=== PATIENT | male | born 1980 | race Caucasian/White ===

== ENCOUNTER 2017-05-01 18:11 | Emergency (ER) | payer OTHER ==
[2017-05-01 18:24] VITALS: TEMP 98.2; BMI 38.7
--- NOTE | 2017-05-01 19:36 | PDOC ---
History of Present Illness - General History Source: Patient Exam Limitations: No Limitations - History of Present Illness Initial Comments: 05/01/17 20:19 The patient is a 37 year old male, with no significant past medical history, who presents to the emergency department with, approx. one day substernal chest pain described as a pressure like sensation rated 7/10. The patient reports the substernal chest pain is worse with deep inspiration. The patient reports he experienced the same exact substernal chest pain last week that lasted for approx. 2-3 days before resolving on its own. The patient also reports mild shortness of breath beginning last week that occurs while walking up and down stairs. 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 The patient also reports increased stressors at home secondary to his mother who is sick. He denies any recent heavy lifting or increase in lifting. He denies any recent travel or surgery. He denies any recent swelling or calf tenderness. He denies any recent diaphoresis, nausea, vomiting, constipation or diarrhea. He denies any recent double or blurry vision. He denies any recent abdominal pain. He denies any recent fevers, chills, headache or dizziness. Allergies: NKA Past surgical history: None reported. Social History: Nonsmoker. Denies EtOH use and recreational drug use. <Enrico Randall - Last Filed: 05/01/17 21:18> <Jyoti Morgan - Last Filed: 05/01/17 23:52> - General Chief Complaint: Shortness of Breath Stated Complaint: S.O.B Time Seen by Provider: 05/01/17 19:10 Past History <Enrico Randall - Last Filed: 05/01/17 21:18> - Past Medical History COPD: No - Immunization History Immunization Up to Date: No - Suicide/Smoking/Psychosocial Hx Smoking History: Never smoked Have you smoked in the past 12 months: No Hx Alcohol Use: No Drug/Substance Use Hx: No Substance Use Type: None <Jyoti Morgan - Last Filed: 05/01/17 23:52> - Past Medical History Allergies/Adverse Reactions: Allergies Allergy/AdvReac Type Severity Reaction Status Date / Time No Known Allergies Allergy Verified 05/01/17 18:24 Home Medications: Ambulatory Orders NK [No Known Home Medication] 05/01/17 Review of Systems - Review of Systems Comments:: 05/01/17 20:20 GENERAL/CONSTITUTIONAL: No fever or chills. No weakness. HEAD, EYES, EARS, NOSE AND THROAT: No change in vision. No ear pain or discharge. No sore throat. CARDIOVASCULAR: +Chest pain. +Shortness of breath. RESPIRATORY: No cough, wheezing, or hemoptysis. GASTROINTESTINAL: No nausea, vomiting, diarrhea or constipation. GENITOURINARY: No dysuria, frequency, or change in urination. MUSCULOSKELETAL: No joint or muscle swelling or pain. No neck or back pain. SKIN: No rash NEUROLOGIC: No headache, vertigo, loss of consciousness, or change in strength/ sensation. ENDOCRINE: No increased thirst. No abnormal weight change. HEMATOLOGIC/LYMPHATIC: No anemia, easy bleeding, or history of blood clots. ALLERGIC/IMMUNOLOGIC: No hives or skin allergy. <Enrico Randall - Last Filed: 05/01/17 21:18> *Physical Exam - Vital Signs Last Vital Signs Temp Pulse Resp BP Pulse Ox 98.2 F 62 18 118/67 99 05/01/17 18:21 18 18:21 18 18:21 05/01/17 18:21 05/01/17 18:21 - Physical Exam Comments: 05/01/17 21:18 GENERAL: +Obese. Awake, alert, and fully oriented, in no acute distress HEAD: No signs of trauma EYES: PERRLA, EOMI, sclera anicteric, conjunctiva clear ENT: Auricles normal inspection, hearing grossly normal, nares patent, oropharynx clear without exudates. Moist mucosa NECK: Normal ROM, supple, no lymphadenopathy, JVD, or masses LUNGS: Breath sounds equal, clear to auscultation bilaterally. No wheezes, and no crackles HEART: Regular rate and rhythm, normal S1 and S2, no murmurs, rubs or gallops ABDOMEN: Soft, nontender, normoactive bowel sounds. No guarding, no rebound. No masses EXTREMITIES: Normal range of motion, no edema. No clubbing or cyanosis. No cords, erythema, or tenderness NEUROLOGICAL: Cranial nerves II through XII grossly intact. Normal speech, normal gait SKIN: Warm, Dry, normal turgor, no rashes or lesions noted. <Enrico Randall Last Filed: 05/01/17 21:18> - Vital Signs Last Vital Signs Temp Pulse Resp BP Pulse Ox 98.2 F 62 18 118/67 99 05/01/17 18:21 05/01/17 18:21 05/01/17 18:21 05/01/17 18:21 05/01/17 18:21 <Jyoti Morgan - Last Filed: 05/01/17 23:52> ED Treatment Course - LABORATORY CBC & Chemistry Diagram: 05/01/17 20:18 05/01/17 20:18 <Enrico Randall - Last Filed: 05/01/17 21:18> - LABORATORY CBC & Chemistry Diagram: 05/01/17 20:18 05/01/17 20:18 - RADIOLOGY Radiology Studies Ordered: Category Date Time Status CHEST PA & LAT [RAD] Stat Radiology 05/01/17 19:35 Ordered <Jyoti Morgan - Last Filed: 05/01/17 23:52> Medical Decision Making - Medical Decision Making 05/01/17 23:50 Pt comes with SOB and atypical chest pain. 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 Pt also states that he is under a lot of stress taking care of his sick mom at home. Pt has no other complaints. He appears well and his exam is normal. His EKG is NSR. Pt has an elevated CPK, however CK MB percent is normal. Pt was hydrated with saline. He will follow as an outpatient. Stable for discharge. <Jyoti Morgan - Last Filed: 05/01/17 23:52> *DC/Admit/Observation/Transfer - Attestations Scribe Attestion: 05/01/17 20:21 Documentation prepared by Enrico Randall, acting as medical biller for Jyoti Morgan MD. <Enrico Randall - Last Filed: 05/01/17 21:18> - Discharge Dispostion Admit: No <Jyoti Morgan - Last Filed: 05/01/17 23:52> Diagnosis at time of Disposition: Dyspnea, Stress at home, Atypical chest pain - Discharge Dispostion Disposition: HOME Condition at time of disposition: Stable - Referrals Referrals: Rio Palomino MD, MD [Staff Physician] - - Patient Instructions Printed Discharge Instructions: Caregiver Stress: The Impact of Chronic Disease on the Family, DI for Atypical Chest Pain, DI for Shortness of Breath Print Language: GREENLANDIC
[2017-05-01] MEDS ORDERED: ASPIRIN 81 MG CHEWABLE TABLETS PO ONE (20:12)
[2017-05-01] MEDS ORDERED: ASPIRIN 81 MG CHEWABLE TABLETS ONE (20:16)
[2017-05-01] MEDS ORDERED: ALBUTEROL SO4 2.5/IPRATROPIUM 0.5 INH SOL 3 ML VIAL.NEB. NEB ONE ×2 (20:30→20:41)
[2017-05-01 20:32] LABS: BASO % 0.6 % (0-2.0); HEMATOCRIT 44.1 % (35.4-49); HEMOGLOBIN 14.7 GM/dL (11.7-16.9); LYMPH % 36.3 % (8-40); MCH 27.6 pg (25.7-33.7); MCHC 33.4 g/dl (32.0-35.9); MEAN CELL VOLUME 82.7 fl (80-96); MEAN PLT VOLUME 9.8 fl (7.5-11.1); MONO % 7.7 % (3.8-10.2); NEUT % 51.4 % (42.8-82.8); PLATELET COUNT 165 K/MM3 (134-434); RBC 5.34 M/mm3 (4.00-5.60); WHITE BLOOD COUNT 7.4 K/mm3 (4.0-10.0)
[2017-05-01 20:45] LABS: INR 1.06 (0.82-1.09)
[2017-05-01 20:54] LABS: ALBUMIN 3.9 g/dl (3.4-5.0); ANION GAP 6 (8-16); BILIRUBIN,TOTAL 0.5 mg/dL (0.2-1.0); BLOOD UREA NITROGEN 15 mg/dL (7-18); CALCIUM 8.1 mg/dL (8.5-10.1); CHLORIDE 106 mmol/L (98-107); CO2 27 mmol/L (21-32); CREATININE 0.7 mg/dL (0.7-1.3); GLUCOSE,RANDOM 84 mg/dL (74-106); POTASSIUM 3.9 mmol/L (3.5-5.1); SGOT/AST 43 U/L (15-37); SGPT/ALT 49 U/L (12-78); SODIUM 139 mmol/L (136-145); TOT PROT 7.2 g/dl (6.4-8.2)
[2017-05-01 20:57] LABS: ALK PHOS 101 U/L (45-117)
[2017-05-01] MEDS ORDERED: SODIUM CHLORIDE 0.9% 500 ML INFUS.BAG IV ONE (21:06)
[2017-05-01 22:16] VITALS: BP 132/74; PULSE 58
--- NOTE | 2017-05-02 11:07 | EKG ---
Test Reason : Blood Pressure : / mmHG Vent. Rate : 054 BPM Atrial Rate : 054 BPM P-R Int : 154 ms QRS Dur : 092 ms QT Int : 448 ms P-R-T Axes : 038 041 027 degrees QTc Int : 424 ms POOR DATA QUALITY, INTERPRETATION MAY BE ADVERSELY AFFECTED SINUS BRADYCARDIA OTHERWISE NORMAL ECG WHEN COMPARED WITH ECG OF 13-OCT-2014 18:33, NO SIGNIFICANT CHANGE WAS FOUND Confirmed by AVRIL GUNTER, ROBINSON ([id number]) on 05/02/2017 11:07:19 AM Referred By: Confirmed By:ROBINSON MACKENZIE MD
== END 2017-05-01 22:21 | disposition home or self-care (01) ==
LOC: JER 18:11
PROC: 3E0F7GC Introduction of Other Therapeutic Substance into Respiratory Tract, Via Natural or Artificial Opening (ICD-10-PCS; principal; 2017-05-01)
DX: R07.89 Other chest pain (principal); Z63.9 Problem related to primary support group, unspecified
CPT/HCPCS: 36415; 71046-TC-FY; 80053; 82550; 82553; 84484; 85025; 85610; 93005; 93010; 99282-25

== ENCOUNTER 2018-06-14 08:19 | Emergency (ER) | payer OTHER ==
[2018-06-14 08:26] VITALS: BP 118/65; PULSE 60; TEMP 98.3; BMI 41.9
--- NOTE | 2018-06-14 09:05 | PDOC ---
History of Present Illness - General History Source: Patient - History of Present Illness Timing/Duration: reports: intermittent <TamikaCecilleNeva - Last Filed: 06/14/18 11:13> <Lorrie Chakraborty - Last Filed: 06/14/18 15:24> - General Chief Complaint: Hematuria Stated Complaint: BLEEDING Time Seen by Provider: 06/14/18 08:49 Past History - Past Medical History COPD: No - Immunization History Immunization Up to Date: No - Suicide/Smoking/Psychosocial Hx Smoking History: Never smoked Have you smoked in the past 12 months: No Hx Alcohol Use: No Drug/Substance Use Hx: No Substance Use Type: None <TamikaChauncey - Last Filed: 06/14/18 11:13> <Lorrie Chakraborty - Last Filed: 06/14/18 15:24> - Past Medical History Allergies/Adverse Reactions: Allergies Allergy/AdvReac Type Severity Reaction Status Date / Time No Known Allergies Allergy Verified 06/14/18 08:21 Home Medications: Ambulatory Orders NK [No Known Home Medication] 05/01/17 Review of Systems - Review of Systems Constitutional: No: Chills, Fever, Unexplained wgt Loss ABD/GI: No: Nausea, Vomiting, Abdominal cramping : Yes: Hematuria. No: Discharge, Flank Pain, Pain, Testicular Mass, Testicular Swelling, Lesions, Testicular Pain Musculoskeletal: No: Back Pain <TamikaCecille-Danya - Last Filed: 06/14/18 11:13> *Physical Exam - Vital Signs Last Vital Signs Temp Pulse Resp BP Pulse Ox 98.3 F 60 18 118/65 98 06/14/18 08:24 06/14/18 08:24 06/14/18 08:24 06/14/18 08:24 06/14/18 08:24 - Physical Exam General Appearance: Yes: Appropriately Dressed. No: Apparent Distress HEENT: positive: Normal Voice Neck: positive: Supple Respiratory/Chest: negative: Respiratory Distress Gastrointestinal/Abdominal: positive: Soft. negative: Tender Male Genitalia: positive: normal genitalia Musculoskeletal: negative: CVA Tenderness Integumentary: positive: Dry, Warm Neurologic: positive: Fully Oriented, Alert, Normal Mood/Affect <Chauncey Lundberg - Last Filed: 06/14/18 11:13> - Vital Signs Last Vital Signs Temp Pulse Resp BP Pulse Ox 98.3 F 60 18 118/65 98 06/14/18 08:24 06/14/18 08:24 06/14/18 08:24 06/14/18 08:24 06/14/18 08:24 <Lorrie Chakraborty - Last Filed: 06/14/18 15:24> ED Treatment Course - LABORATORY CBC & Chemistry Diagram: 06/14/18 09:02 06/14/18 09:02 <Chauncey Lundberg - Last Filed: 06/14/18 11:13> - LABORATORY CBC & Chemistry Diagram: 06/14/18 09:02 06/14/18 09:02 - ADDITIONAL ORDERS Additional order review: Laboratory Results 06/14/18 06/14/18 09:02 09:02 Sodium 135 L Potassium 4.3 Chloride 106 Carbon Dioxide 26 Anion Gap 2 L BUN 11 Creatinine 0.5 L Creat Clearance w eGFR 184.16 Random Glucose 95 Calcium 8.9 Total Bilirubin 0.5 AST 39 H ALT 49 Alkaline Phosphatase 98 Total Protein 7.4 Albumin 3.8 Urine Color Yellow Urine Appearance Clear Urine pH 7.0 D Ur Specific [place] 1.010 Urine Protein Negative Urine Glucose (UA) Negative Urine Ketones Negative Urine Blood Negative Urine Nitrite Negative Urine Bilirubin Negative Urine Urobilinogen 0.2 Ur Leukocyte Esterase Negative Urine HCG, Qual Negative 06/14/18 09:02 RBC 5.55 MCV 83.5 MCHC 33.7 RDW 13.9 MPV 9.0 Neutrophils % 59.6 Lymphocytes % 30.3 Monocytes % 6.2 Eosinophils % 3.1 Basophils % 0.8 - Medications Given in the ED: ED Medications Discontinued Medications Generic Name Dose Route Start Last Admin Trade Name Freq PRN Reason Stop Dose Admin Azithromycin 1,000 mg 06/14/18 10:22 06/14/18 11:14 Zithromax - PO 06/14/18 10:23 1,000 mg ONCE ONE Administration Ceftriaxone Sodium 250 mg 06/14/18 10:22 06/14/18 11:14 Rocephin - IM 06/14/18 10:23 250 mg ONCE ONE Administration <Lorrie Chakraborty - Last Filed: 06/14/18 15:24> Medical Decision Making - Medical Decision Making 06/14/18 08:57 38-year-old male, h/o chlamydia 8 years ago, here w/ intermittent hematuria x 4 days. Also c/o possible dysuria. No frequency, penile discharge, testicular pain /swelling, flank pain, n/v/f/c. No h/o of same. States he has not been sexually active 3 months. See exam Possible STD vs true UTI, less likely renal stone Exam unremarkable -ua/cxs -labs 06/14/18 10:23 Labs including UA normal. Given hx, will treat empirically for STD and discharge with PMD follow-up <Chauncey Lundberg - Last Filed: 06/14/18 11:13> - Medical Decision Making The patient was seen and evaluated in conjunction with midlevel provider under my direct supervision, ancillary studies were reviewed. I agree with the plan as outlined by GRACE Lundberg. HPI, workup/dispo as outlined. VS reviewed, wnl. 06/14/18 15:24 <Lorrie Chakraborty - Last Filed: 06/14/18 15:24> *DC/Admit/Observation/Transfer <Chauncey Lundberg - Last Filed: 06/14/18 11:13> <Lorrie Chakraborty - Last Filed: 06/14/18 15:24> Diagnosis at time of Disposition: Hematuria Qualifiers: Hematuria type: gross Qualified Code(s): R31.0 - Gross hematuria - Discharge Dispostion Disposition: HOME Condition at time of disposition: Good - Patient Instructions Printed Discharge Instructions: DI for Hematuria Additional Instructions: Recibi tratamiento para alondra posible ETS shasha la clamidia y la gonorrea. El hombre de gutierrez edad estefani vez tiene alondra infeccin aislada en la orina y cuando lo hace, con frecuencia es causada por alondra enfermedad de transmisin sexual, por lo que fue tratado hoy. Enviamos la prueba de gonorrea, clamidia y si son positivos en 2 o 3 veliz, lo llamaremos. De lo contrario, puede llamarnos al [phone]. Por favor, abstngase de la actividad sexual, los resultados pendientes y si es positivo, debe informar a gutierrez (s) kurt (s) y volver a realizar la verificacin en 2-3 semanas para asegurarse de que la enfermedad se haya emily. Por favor harvey un seguimiento con gutierrez mdico. Print Language: BELGIAN
[2018-06-14 09:11] LABS: BASO % 0.8 % (0-2.0); EOS % 3.1 % (0-4.5); HEMATOCRIT 46.3 % (35.4-49); HEMOGLOBIN 15.6 GM/dL (11.7-16.9); LYMPH % 30.3 % (8-40); MCH 28.1 pg (25.7-33.7); MCHC 33.7 g/dl (32.0-35.9); MEAN CELL VOLUME 83.5 fl (80-96); MONO % 6.2 % (3.8-10.2); NEUT % 59.6 % (42.8-82.8); PLATELET COUNT 199 K/MM3 (134-434); RBC 5.55 M/mm3 (4.00-5.60); RDW 13.9 % (11.9-15.9); WHITE BLOOD COUNT 6.6 K/mm3 (4.0-10.0)
[2018-06-14 09:30] LABS: HCG,QUALITATIVE URINE Negative
[2018-06-14 09:39] LABS: URINE APPEARANCE Clear; URINE BILIRUBIN Negative (NEGATIVE); URINE COLOR Yellow; URINE GLUCOSE (UA) Negative (NEGATIVE); URINE KETONE Negative (NEGATIVE); URINE LEUK ESTERASE Negative (NEGATIVE); URINE NITRITE Negative (NEGATIVE); URINE PROTEIN Negative (NEGATIVE); URINE UROBILINOGEN 0.2 mg/dL (0.2-1.0)
[2018-06-14 09:41] LABS: ALBUMIN 3.8 g/dl (3.4-5.0); ALK PHOS 98 U/L (45-117); ANION GAP 2 MMOL/L (8-16); BILIRUBIN,TOTAL 0.5 mg/dL (0.2-1); BLOOD UREA NITROGEN 11 mg/dL (7-18); CALCIUM 8.9 mg/dL (8.5-10.1); CHLORIDE 106 mmol/L (98-107); CO2 26 mmol/L (21-32); CREATININE 0.5 mg/dL (0.55-1.3); GLUCOSE,RANDOM 95 mg/dL (74-106); POTASSIUM 4.3 mmol/L (3.5-5.1); SGOT/AST 39 U/L (15-37); SGPT/ALT 49 U/L (13-61); SODIUM 135 mmol/L (136-145); TOT PROT 7.4 g/dl (6.4-8.2)
[2018-06-14] MEDS ORDERED: AZITHROMYCIN 250 MG TABLET PO ONE (10:22)
[2018-06-14] MEDS ORDERED: AZITHROMYCIN 250 MG TABLET ONE (10:35)
[2018-06-14] MEDS ORDERED: cefTRIAXone SODIUM 1 GM VIAL ONE (10:36)
[2018-06-14] MEDS ORDERED: LIDOCAINE HCL 1%, 10 MG/ML (20ML VIAL) ONE (10:37)
== END 2018-06-14 11:25 | disposition home or self-care (01) ==
LOC: JER 08:19
DX: Z20.2 Contact with and (suspected) exposure to infections with a predominantly sexual mode of transmission (principal)
CPT/HCPCS: 36415; 80053; 81003; 84703; 85025; 87086; 87491; 87591; 96372; 99281-25

== ENCOUNTER 2018-09-10 04:48 | Emergency (ER) | payer OTHER ==
[2018-09-10 05:14] VITALS: BP 125/85; PULSE 76; TEMP 98.8; BMI 43.8
--- NOTE | 2018-09-10 05:23 | PDOC ---
History of Present Illness - General Chief Complaint: Pain Stated Complaint: FOOT PAIN Time Seen by Provider: 09/10/18 05:00 History Source: Patient Exam Limitations: No Limitations - History of Present Illness Initial Comments: 09/10/18 05:31 HISTORY OF PRESENT ILLNESS: 38-year-old male denies medical history presents emergency department for evaluation of bilateral feet pain which she describes as a burning throbbing sensation. Patient reports the pain is been ongoing for more than 2 years for which she has been intermittently using topical antifungal cream which has worked. Patient now concerns that his toenails of become discolored and are increasingly painful. Patient also worried that he has redness to the tops of both feet which was started for 3 days. No recent travel or sick contacts. PAST MEDICAL HISTORY: Denies past medical history SURGICAL HISTORY: Denies ALLERGIES: No known drug allergies REVIEW OF SYSTEMS General/Constitutional: Denies fever or chills. Denies weakness, weight change. HEENT: Denies change in vision. Denies ear pain or discharge. Denies sore throat. Cardiovascular: Denies chest pain or shortness of breath. Respiratory: Denies cough, wheezing, or hemoptysis. Gastrointestinal: Denies nausea, vomiting, diarrhea or constipation. Denies rectal bleeding. Genitourinary: Denies dysuria, frequency, or change in urination. Musculoskeletal: see HPI Skin and breasts: see HPI Neurologic: Denies headache, vertigo, loss of consciousness, or loss of sensation. Psychiatric: Denies depression or anxiety. Endocrine: Denies increased thirst. Denies abnormal weight change. Hematologic/Lymphatic: Denies anemia, easy bleeding, or history of blood clots. Allergic/Immunologic: Denies hives or skin allergy. Denies latex allergy. PHYSICAL EXAM General Appearance: Well-appearing, appropriately dressed. No apparent distress , no intoxication. Respiratory/Chest: Lungs CTAB. No shortness of breath, chest tenderness, respiratory distress, accessory muscle use. No crackles, rales, rhonchi, stridor , wheezing, dullness Cardiovascular: RRR. S1, S2. No JVD, murmur, bradycardia, tachycardia. Vascular Pulses: Dorsalis-Pedis (R): 2+, Dorsalis-Pedis (L): 2+ Musculoskeletal/Extremities: See integumentary assessment Integumentary: Erythema and warmth present to dorsum of bilateral feet extending from the toes to the mid foot. Skin breakdowns and irritation present interdigitally bilaterally. Great toenails with erosion and discoloration present bilaterally. Of the toenails a discolored but without erosion. 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 Fully oriented, alert. Appropriate mood/affect. Motor strength 5/5. No appreciable EOM palsy, facial droop or sensory deficit. Past History - Past Medical History Allergies/Adverse Reactions: Allergies Allergy/AdvReac Type Severity Reaction Status Date / Time No Known Allergies Allergy Verified 09/10/18 05:11 Home Medications: Ambulatory Orders Cephalexin Monohydrate [Keflex -] 500 mg PO Q6H #28 capsule 09/10/18 Clotrimazole [Clotrimazole AF] 28 gm TP BID #1 tube 09/10/18 Terbinafine HCl 250 mg PO DAILY #90 tablet 09/10/18 COPD: No - Immunization History Immunization Up to Date: No - Suicide/Smoking/Psychosocial Hx Smoking History: Never smoked Have you smoked in the past 12 months: No Information on smoking cessation initiated: No Hx Alcohol Use: No Drug/Substance Use Hx: No Substance Use Type: None *Physical Exam - Vital Signs Last Vital Signs Temp Pulse Resp BP Pulse Ox 98.8 F 76 18 125/85 98 09/10/18 05:12 09/10/18 05:12 09/10/18 05:12 09/10/18 05:12 09/10/18 05:12 Medical Decision Making - Medical Decision Making 09/10/18 05:35 A/P: 38-year-old male with onychomycosis, tinea pedis and resulting cellulitis from prolonged tinea infection Patient reports he has an appointment with podiatry on Wednesday. I'll treat patient with Lamisil 250 mg orally daily for the next 90 days, clotrimazole cream to be applied to bilateral feet twice a day and Keflex 500 mg 4 times a day for the next 7 days. Patient has been instructed to make a solution of vinegar, water and Betadine soak his feet for 10 minutes twice a day prior to applying clotrimazole ointment to his feet. Patient was instructed to thoroughly wash his feet with soap and water after removing from solution and make sure that his feet are fully dry before applying cream. Patient has verbalized understanding of discharge instructions. *DC/Admit/Observation/Transfer Diagnosis at time of Disposition: Tinea pedis of both feet, Onychomycosis Cellulitis Qualifiers: Site of cellulitis: extremity Site of cellulitis of extremity: lower extremity Laterality: unspecified laterality Qualified Code(s): L03.119 - Cellulitis of unspecified part of limb - Discharge Dispostion Disposition: HOME Condition at time of disposition: Stable Decision to Admit order: No - Prescriptions Prescriptions: Cephalexin Monohydrate [Keflex -] 500 mg PO Q6H #28 capsule Clotrimazole [Clotrimazole AF] 28 gm TP BID #1 tube Terbinafine HCl 250 mg PO DAILY #90 tablet - Referrals Referrals: Martin Solorio MD [Primary Care Provider] - - Patient Instructions Additional Instructions: Take Keflex 500 mg 4 times a day for the next 7 days. Take Lamisil 250 mg orally daily for the next 12 weeks Soak feet in a solution of vinegar and Betadine for 10 minutes daily. Wash feet with soap and water after removing from solution and then apply clotrimazole cream to feet twice a day for the next 2 weeks. Keep your appointment with podiatry as previously scheduled. Return to emergency department for any new or worsening symptoms. Thank you very much for choosing us to provide your emergent health care needs. - Post Discharge Activity
== END 2018-09-10 05:48 | disposition home or self-care (01) ==
LOC: JER 04:48
DX: B35.3 Tinea pedis (principal); L03.115 Cellulitis of right lower limb; L03.116 Cellulitis of left lower limb; B35.1 Tinea unguium
CPT/HCPCS: 99281-25

== ENCOUNTER 2020-04-12 12:42 | Emergency (ER) | payer OTHER ==
[2020-04-12 12:58] VITALS: TEMP 98; BMI 36.5
[2020-04-12 13:54] LABS: BASO % 0.6 % (0-2.0); EOS % 4.2 % (0-4.5); HEMATOCRIT 44.3 % (35.4-49); LYMPH % 35.6 % (8-40); MCH 28.7 pg (25.7-33.7); MCHC 33.8 g/dl (32.0-35.9); MEAN CELL VOLUME 84.9 fl (80-96); MEAN PLT VOLUME 9.5 fl (7.5-11.1); MONO % 7.6 % (3.8-10.2); PLATELET COUNT 187 K/MM3 (134-434); RBC 5.21 M/mm3 (4.00-5.60); RDW 14.3 % (11.9-15.9); WHITE BLOOD COUNT 7.2 K/mm3 (4.0-10.0)
[2020-04-12 14:21] LABS: CHLORIDE 104 mmol/L (98-107); POTASSIUM 4.6 mmol/L (3.5-5.1); SODIUM 138 mmol/L (136-145)
[2020-04-12 14:24] LABS: CALCIUM 8.7 mg/dL (8.5-10.1)
[2020-04-12 14:25] LABS: ALBUMIN 3.7 g/dl (3.4-5.0); ANION GAP 4 MMOL/L (8-16); BLOOD UREA NITROGEN 9.1 mg/dL (7-18); CO2 30 mmol/L (21-32); GLUCOSE,RANDOM 77 mg/dL (74-106)
[2020-04-12 14:28] LABS: CREATININE 0.7 mg/dL (0.55-1.3); SGOT/AST 40 U/L (15-37); SGPT/ALT 47 U/L (13-61)
[2020-04-12 14:30] LABS: ALK PHOS 99 U/L (45-117); BILIRUBIN,TOTAL 0.4 mg/dL (0.2-1); TOT PROT 7.2 g/dl (6.4-8.2)
[2020-04-12 14:58] VITALS: BP 122/63; PULSE 54
== END 2020-04-12 14:58 | disposition home or self-care (01) ==
LOC: JER 12:42
DX: R07.9 Chest pain, unspecified (principal)
CPT/HCPCS: 36415; 71046-TC-FY; 80053; 82550; 82553; 84484; 85025; 93005; 93010; 99285-25

== ENCOUNTER 2021-07-24 11:57 | Emergency (ER) | payer OTHER ==
[2021-07-24 12:18] VITALS: BP 111/85; PULSE 65; TEMP 98.3; BMI 41.1
[2021-07-24] MEDS ORDERED: ACETAMINOPHEN 325 MG TABLET (FP) PO ONE (12:28)
[2021-07-24] MEDS ORDERED: AMOXICILLIN 250 MG CAPSULE PO ONE (12:30)
[2021-07-24] MEDS ORDERED: ACETAMINOPHEN 325 MG TABLET (FP) ONE (12:33)
== END 2021-07-24 12:41 | disposition home or self-care (01) ==
LOC: FER 11:57
DX: H66.91 Otitis media, unspecified, right ear (principal)
CPT/HCPCS: 99283-25